=== PATIENT | female | born 1955 | race Caucasian/White ===

== ENCOUNTER 2018-10-31 08:38 | Day surgery (SDC) | payer OTHER ==
[~2018-10-31 08:38] MED LIST: GENTAMICIN 0.3% 5 ML OPH (PRE-OP) OPER
[2018-10-31] MEDS: DICLOFENAC 0.1% 2.5 ML OPH (PRE-OP) OPER (09:56)
[2018-10-31] MEDS: TETRACAINE 0.5% 4 ML OPH (PRE-OP) OPER (09:56)
[2018-10-31] MEDS: CIPROFLOXACIN 0.3% 2.5 ML OPH (PRE-OP) OPER (09:56)
[2018-10-31] MEDS: CYCLOPENTOLATE 1% 2 ML OPH OPER (09:57)
[2018-10-31] MEDS: TROPICAMIDE 1% 15 ML OPH (PRE OP) OPER (09:57)
[2018-10-31] MEDS: PHENYLephrine 2.5% 15 ML OPH (PRE-OP) OPER (09:57)
[2018-10-31] MEDS ORDERED: MIDAZOLAM 1 MG/ML 2 ML INJ ×2 (11:56→12:18)
[2018-10-31] MEDS: LACTATED RINGER'S 1,000 ML IV (12:00)
[2018-10-31] MEDS: TOBRAMYCIN/DEXAMETH 3.5 GM OPH OINT LEFT EYE (12:44)
[2018-10-31] MEDS: NA HYALURONATE/CHONDROITIN 0.5 ML SYG LEFT EYE (12:44)
[2018-10-31] MEDS: TETRACAINE 0.5% 4 ML OPH LEFT EYE (12:44)
[2018-10-31] MEDS: LIDOCAINE 4% (MPF) 5 ML INJ INJ (12:44)
[2018-10-31] MEDS ORDERED: ONDANSETRON 4 MG INJ IV (13:00)
[2018-10-31] MEDS: OXYCODONE/ACETAMINOPHEN (5/325) TAB PO (13:09)
[2018-10-31] MEDS: ACETAMINOPHEN 325 MG TAB (POST-OP) PO (13:19)
== END 2018-10-31 14:50 | disposition home or self-care (01) ==
LOC: SDS 08:38
DX: H26.8 Other specified cataract (principal); I10 Essential (primary) hypertension; E78.5 Hyperlipidemia, unspecified; E03.9 Hypothyroidism, unspecified
CPT/HCPCS: 66984; 71045